=== PATIENT | female | born 1965 | race Caucasian/White ===

== ENCOUNTER 2018-12-28 20:40 | Emergency (ER) | payer OTHER ==
[2018-12-28 20:45] VITALS: BP 118/81
[2018-12-28] MEDS ORDERED: Sodium Chloride 0.9% 10 ML Syringe FLUSH PRN (20:45)
[2018-12-28] MEDS ORDERED: HYDROmorphone 1 MG/ML Syringe IVPUSH ONE ×2 (20:46→21:04)
--- NOTE | 2018-12-28 20:53 | EDM.PDOC ---
ED HPI GENERAL MEDICAL PROBLEM - General Chief Complaint: Lower Extremity Injury/Pain Stated Complaint: FELL HURT ANKLE Time Seen by Provider: 12/28/18 20:48 Source of Information: Reports: Patient, Old Records, RN History Limitations: Reports: No Limitations - History of Present Illness INITIAL COMMENTS - FREE TEXT/NARRATIVE: 53 yo female was coming down off some bleachers and hit a wet floor and slipped with injury to the L ankle. Has a visible deformity. Took ibuprofen before arrival. No other injuries. Ate dinner at 1830h tonight. Had water on the way to the hospital. 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 Left Ankle Pain Score (Numeric/FACES): 5 - Related Data Allergies Allergy/AdvReac Type Severity Reaction Status Date / Time lisinopril Allergy Joint Pain Verified 12/28/18 20:44 Home Meds: Home Meds NK [No Known Home Meds] 12/28/18 [History] Past Medical History Other HEENT History: wears glasses Other Respiratory History: "asthma like attack" upon exertion Social & Family History - Tobacco Use Smoking Status *Q: Never Smoker Second Hand Smoke Exposure: No - Caffeine Use Caffeine Use: Reports: Coffee, Soda - Recreational Drug Use Recreational Drug Use: No Review of Systems - Review of Systems Review Of Systems: See Below Constitutional: Reports: No Symptoms Musculoskeletal: Reports: Joint Pain (L ankle) Skin: Reports: No Symptoms Neurological: Reports: No Symptoms ED EXAM, GENERAL - Physical Exam Exam: See Below Exam Limited By: No Limitations General Appearance: Alert, WD/WN, No Apparent Distress Eye Exam: Bilateral Eye: Normal Inspection Ears: Normal External Exam, Hearing Grossly Normal Ear Exam: Bilateral Ear: Auricle Normal, Canal Normal Nose: Normal Inspection, No Blood Throat/Mouth: Normal Inspection, No Airway Compromise Head: Atraumatic, Normocephalic Neck: Normal Inspection Respiratory/Chest: No Respiratory Distress, Lungs Clear, Normal Breath Sounds, No Accessory Muscle Use Cardiovascular: Regular Rate, Rhythm, No Edema GI/Abdominal: Normal Bowel Sounds, Soft, Non-Tender, No Distention Extremities: Other (L ankle with visible deformity. ). No: Normal Inspection, Normal Range of Motion, Non-Tender, Limited Range of Motion Neurological: Alert, Oriented, CN II-XII Intact, Normal Cognition, No Motor/ Sensory Deficits Psychiatric: Normal Affect, Normal Mood Skin Exam: Warm, Dry, Intact, Normal Color, No Rash ED TRAUMA EXTREMITY PROCEDURES - Joint Reduction Site: Other (L ankle) Sedation: Conscious Sedation (anesthesia here to sedate) Technique: Other (inline traction) Number of Attempts: 1 Post-Reduction Imaging: Completely Reduced, Fracture Seen Joint Reduction Complications: No Progress/Comments: lateral stirrup and posterior splints applied with inline traction maintained. Course - Vital Signs Text/Narrative:: Called and left a message on the voice mail of Dr. Medina @ [phone] Posterior splint made with Orthoglass, 60 inches total of 4 inch width, secured with one 6 inch CHERRI and 4 x 4 inch CHERRI wraps. Last Recorded V/S: Last Vital Signs Temp 37.4 C 12/28/18 20:45 Pulse 75 12/28/18 20:45 Resp 16 12/28/18 20:45 BP 118/81 12/28/18 20:45 Pulse Ox 98 12/28/18 20:45 - Orders/Labs/Meds Orders: Active Orders 24 hr Category Date Time Status Ankle Min 3V Lt [CR] Stat Exams 12/28/18 20:46 Taken Ankle Min 3V Lt [CR] Stat Exams 12/28/18 21:27 Ordered Sodium Chloride 0.9% [Saline Flush] Med 12/28/18 20:45 Active 10 ml FLUSH ASDIRECTED PRN Saline Lock Insert [OM.PC] Routine Oth 12/28/18 20:45 Ordered Medication Orders Sodium Chloride (Saline Flush) 10 ml FLUSH ASDIRECTED PRN PRN Reason: Keep Vein Open Last Admin: 12/28/18 21:04 Dose: 10 ml Meds: Medications Generic Name Dose Route Start Last Admin Trade Name Freq PRN Reason Stop Dose Admin Sodium Chloride 10 ml 12/28/18 20:45 12/28/18 21:04 Saline Flush FLUSH 10 ml ASDIRECTED PRN Administration Keep Vein Open Discontinued Medications Generic Name Dose Route Start Last Admin Trade Name Freq PRN Reason Stop Dose Admin Hydromorphone HCl 1 mg 12/28/18 20:46 12/28/18 20:54 Dilaudid IVPUSH 12/28/18 20:47 1 mg ONETIME ONE Administration Hydromorphone HCl 1 mg 12/28/18 21:04 Dilaudid IVPUSH 12/28/18 21:05 ONETIME ONE Ondansetron HCl 4 mg 12/28/18 20:58 12/28/18 21:05 Zofran IVPUSH 12/28/18 20:59 4 mg ONETIME ONE Administration Propofol Confirm 12/28/18 21:31 Diprivan 20 Ml Administered 12/28/18 21:32 Dose 200 mg .ROUTE .STK-MED ONE - Radiology Interpretation Free Text/Narrative:: L ankle [id number]-[id number] fibula fx, dislocation L ankle post-reduction I-[id number] reduction Departure - Departure Time of Disposition: 22:00 Disposition: Home, Self-Care 01 Condition: Fair Clinical Impression: Fracture dislocation of left ankle Qualifiers: Encounter type: initial encounter Fracture type: closed Qualified Code(s): S82.892A - Other fracture of left lower leg, initial encounter for closed fracture - Discharge Information *PRESCRIPTION DRUG MONITORING PROGRAM REVIEWED*: No *COPY OF PRESCRIPTION DRUG MONITORING REPORT IN PATIENT BECKA: No Instructions: Tibial and Fibular Fractures Referrals: Nirmala Betancourt PA [Primary Care Provider] - Forms: ED Department Discharge Additional Instructions: Keep your L foot elevated above your heart as much as possible to reduce swelling and pain. Take ibuprofen 600 mg every 6 hrs with food and take acetaminophen 1000 mg every 6 hrs for pain relief. If this is not strong enough substitute [place] for the acetaminophen. Crutch walking and no weight bearing. Follow up with orthopedics next week. Use Zofran as directed for nausea control. - My Orders Last 24 Hours: My Active Orders 12/28/18 20:45 Sodium Chloride 0.9% [Saline Flush] 10 ml FLUSH ASDIRECTED PRN Saline Lock Insert [OM.PC] Routine 12/28/18 20:46 Ankle Min 3V Lt [CR] Stat 12/28/18 21:27 Ankle Min 3V Lt [CR] Stat - Assessment/Plan Last 24 Hours: My Active Orders 12/28/18 20:45 Sodium Chloride 0.9% [Saline Flush] 10 ml FLUSH ASDIRECTED PRN Saline Lock Insert [OM.PC] Routine 12/28/18 20:46 Ankle Min 3V Lt [CR] Stat 12/28/18 21:27 Ankle Min 3V Lt [CR] Stat
[2018-12-28] MEDS ORDERED: Ondansetron 4 MG/2 ML SDV IVPUSH ONE (20:58)
[2018-12-28] MEDS ORDERED: Propofol 200 MG/20 ML SDV ONE (21:31)
--- NOTE | 2018-12-28 21:39 | CRLCR ---
Indication: Injury and pain Technique: Left ankle 3 views. Comparison: None Findings: There is an oblique fracture of the lateral malleolus at the joint line with lateral displacement of 5 millimeters. There is widening of the medial aspect of the bony mortise consistent with a deltoid ligament injury. In addition there is a posterior malleolar fracture with distraction in the range of 14 millimeters with anterior dislocation of the tibial plafond relative to the talar dome. Impression: Essentially a trimalleolar injury with likely deltoid ligament tear as well as fractures of the posterior malleolus and lateral malleolus. Associated anterior dislocation of the tibial plafond relative to the talar dome. Dictated by Darrel Carmona MD @ Dec 28 2018 9:37PM Signed by Dr. Darrel Carmona @ Dec 28 2018 9:39PM
--- NOTE | 2018-12-28 21:52 | CRLCR ---
Indication: Post reduction Technique: Left ankle 3 views. Comparison: Left ankle 12/28/2018 at 20:58 Findings: Interval placement of a plaster cast which obscures some fine bony detail. The ankle joint has now been reduced and there is no dislocation. Posterior malleolar fracture redemonstrated with 4 millimeters distraction and lateral malleolar fracture demonstrated with 4 millimeter posterior displacement of the distal fracture fragment. Impression: Interval reduction of the left ankle as described above. Dictated by Darrel Carmona MD @ Dec 28 2018 9:49PM Signed by Dr. Darrel Carmona @ Dec 28 2018 9:51PM
--- NOTE | 2018-12-29 03:40 | ANES ---
DATE OF SERVICE: 12/28/2018 INDICATIONS: A 53-year-old lady in the emergency room with a fracture-dislocation of her left ankle. I was asked by Dr. Bear to provide sedation for a closed reduction. On interviewing the patient, she ate approximately 3 hours ago. She had a sandwich, chips and a glass of water. She has no known allergies. She does take Nexium for reflux. The procedure of sedation was explained to her in detail. All questions were answered. The consent was signed. DESCRIPTION OF PROCEDURE: She was hooked up to the ECG, pulse oximetry, blood pressure cuff and was given 4 L of oxygen via nasal cannula. Before I got there, she had been given 1 mg of Dilaudid IV. She was given by me 90 mg of propofol IV push and the ankle was easily reduced and a sugar-tong and posterior splint was applied by Dr. Bear. Within 15 minutes, she opened her eyes, responded to questions appropriately, and tolerated the procedure well. Alfonso Santiago CRNA /[id number]
== END 2018-12-28 22:32 | disposition home or self-care (01) ==
LOC: JP.ED 20:40
DX: S82.62XA Displaced fracture of lateral malleolus of left fibula, initial encounter for closed fracture (principal); Z88.8 Allergy status to other drugs, medicaments and biological substances; W01.198A Fall on same level from slipping, tripping and stumbling with subsequent striking against other object, initial encounter
CPT/HCPCS: 27788; 73610-LT; 96374; 96375; 99152; 99284-25; J1170; J2405; J2704

== ENCOUNTER 2019-01-03 09:41 | Day surgery (SDC) | payer OTHER ==
[2019-01-03] MEDS: Sodium Chloride 0.9% 1,000 ML IV SCH ×2 (11:33→16:37)
[2019-01-03] MEDS ORDERED: ceFAZolin 1 GM in Premix Bag 1 BAG IV ONE (12:15)
[2019-01-03] MEDS ORDERED: Rocuronium 50 MG/5 ML Vial ONE (12:30)
[2019-01-03] MEDS ORDERED: Succinylcholine 200 MG/10 ML MDV ONE (12:30)
[2019-01-03] MEDS ORDERED: fentaNYL 250 MCG/5 ML SDV ONE (12:30)
[2019-01-03] MEDS ORDERED: Ondansetron 4 MG/2 ML SDV ONE (12:30)
[2019-01-03] MEDS ORDERED: Dexamethasone 4 MG/ML SDV ONE (12:30)
[2019-01-03] MEDS ORDERED: Propofol 200 MG/20 ML SDV ONE (12:30)
[2019-01-03] MEDS ORDERED: fentaNYL 100 MCG/2 ML SDV ONE (12:30)
[2019-01-03] MEDS ORDERED: Bupivacaine 0.5% 50 ML MDV INJECT ONE (13:43)
[2019-01-03] MEDS ORDERED: Acetaminophen/oxyCODONE 325-5 MG Tab PO ONE ×2 (15:17→15:26)
[2019-01-03 16:58] VITALS: BP 145/76
--- NOTE | 2019-01-05 14:51 | PCM.OPNOTE ---
- General Post-Op/Procedure Note Date of Surgery/Procedure: 01/03/19 Operative Procedure(s): Open Reduction and internal fixation left fibula, repair deltoid ligament, fixation of syndesmosis with Tight-rope device Findings: distal fibula fracture, deltoid ligament rupture, syndesmosis disruption left ankle Pre Op Diagnosis: Dislocation left ankle, left distal fibula fracture Post-Op Diagnosis: Dislocation left ankle, distal fibula fracture, deltoid ligament rupture, syndesmosis rupture Anesthesia Technique: General ET Tube Primary Surgeon: Loyd BARCENAS in mLs: 20 Complications: None Condition: Good Free Text/Narrative:: Indications: Payal is a 53-year-old female who sustained a dislocation of her left ankle with a fracture of the distal fibula. She now presents for open reduction and internal fixation of unstable ankle with possible repair of the deltoid ligament.Risks, benefits and potential complications of the procedure w discussed. She wishes to proceed. Procedure: After adequate anesthesia was obtained patient was placed supine with a bump under the left hip.The left foot and leg was prepped and draped in a sterile fashion. Leg was exsanguinated and tourniquet inflated to 300 mg of mercury pressure. Longitudinal incision was made over the distalfibula This was carried down through the subcutaneous tissue directly to the fibula. Fracture was identified. The fracture was reduced and held with a bone-holding clamp. A contoured fibular plate was selected and secured distally with locking screws. This was then secured proximally with 3.5 cortical screws. Fixation was evaluated with flouroscopy. The medial space was wide and decision was made to proceed with repair of the deltoid ligament. Curvilinear incision was made over the medial aspect of the ankle. This was carried down through the subcutaneous tissues.Deltoid tear was identified. A portion of the tear was displaced into the joint. This was removed. Ronguer was used to lightly decorticate the anterior aspect of the distal medial malleolus. 2 Mitek GII anchors were placed in the medial maleollus. Both limbs of the sutures were brought through the deltoid ligament.The foot was then held in a dorsiflexed position and reduced medially. Sutures were then tied and cut. Further evaluation was done with fluoroscopy. Lateral stress revealed persistent widening with displacement of the syndesmosis. Decision was made to proceed with fixation of the syndesmosis using a Tight-Rope device.Guidepin was placed through a screw hole in the fibular plate across the fibula and through the distal tibia. Cannulated drill was then placed over the pin. A needle for the tight rope device was placed through the screw hole and through the tibial tunnel. Sutures were used to pull the toggle to the distal tibia.Tension was then applied laterally. Fluoroscopy revealed that the implant had not fully deployed on the cortex and had been pulled back laterally. Adequate fixation could not be obtained. Sutures were cut and the lateral button was removed along with th sutures.Attempt was made to place the pin back through the same tunnel but the implant was blocking passage. A separate drill hole was then made distal to this again through the plate. Process was repeated. Confirmation of adequate position of the implant was done with fluoroscopy. Sutures were then tightened down The foot was again placed in neutral position and the implant tightened reducing the fibula. Sutures were tied and cut. All of the incisions were then irrigated with saline. Lateral incision was closed with 0 Vicryl in the deep layer over the fibula, 2-0 Vicryl and a subcuticular 3-0 running Monocryl. Steri-Strips were applied. A well-padded AO plaster splint was then applied with the foot in neutral position. Taken from the operating room in a stable condition there were no complications.
== END 2019-01-03 17:18 ==
LOC: JP.ORTCL 09:41 → JP.SDS 09:41 → EDSTATUS 11:30 → JP.SDS 17:18
PROVIDERS: ATTEND Specialist
DX: S93.05XA Dislocation of left ankle joint, initial encounter (principal); S82.402A Unspecified fracture of shaft of left fibula, initial encounter for closed fracture; S93.439A Sprain of tibiofibular ligament of unspecified ankle, initial encounter; K76.0 Fatty (change of) liver, not elsewhere classified; K21.9 Gastro-esophageal reflux disease without esophagitis; Z79.899 Other long term (current) drug therapy; Z88.8 Allergy status to other drugs, medicaments and biological substances; W01.0XXA Fall on same level from slipping, tripping and stumbling without subsequent striking against object, initial encounter
CPT/HCPCS: 27695; 27792; 27829; 36415; 76000; 80053; 85027; A9270; C1713; C1776; J0690; J3490; J7030; J0330; J1100; J2405; J2704; J3010

== ENCOUNTER 2019-09-02 06:59 | Day surgery (SDC) | payer OTHER ==
[2019-09-02] MEDS ORDERED: Lactated Ringers 1,000 ML IV SCH (07:30)
[2019-09-02] MEDS ORDERED: fentaNYL 100 MCG/2 ML SDV ONE (08:13)
[2019-09-02] MEDS ORDERED: Midazolam 1 MG/ML 2 ML SDV ONE (08:14)
[2019-09-02] MEDS ORDERED: Propofol 200 MG/20 ML SDV ONE (08:14)
[2019-09-02 10:07] VITALS: BP 116/72; PULSE 59
[2019-09-02] MEDS: Ampicillin 2 GM in Sodium Chloride 0.9% 100 ML IV ONE ×2 (11:18→11:19)
--- NOTE | 2019-09-02 13:48 | OR ---
DATE OF PROCEDURE: 09/02/2019 SURGEON: Riki Sanchez MD PREOPERATIVE DIAGNOSIS: Colon cancer screening. POSTOPERATIVE DIAGNOSIS: Diverticulosis. PROCEDURE: Colonoscopy to the cecum. ANESTHESIA: IV anesthesia with monitored anesthesia care. INDICATIONS: This 54-year-old white female is referred for a colonoscopy for colon cancer screening. She has never had a colonoscopic exam. I counseled her for the procedure, including risks and alternatives, and she gave her informed consent to proceed. DESCRIPTION OF PROCEDURE: The patient was placed in the left lateral decubitus position. IV anesthesia was administered by the Anesthesia Service. Time-out was held. A rectal exam was performed, which was unremarkable. The flexible video Olympus colonoscope was introduced through her anus, up her rectum, out her colon all the way to the cecum. Once the cecum was reached, the scope was slowly withdrawn, examining the mucosa throughout. No mucosal abnormalities were noted, except for a few scattered left-sided diverticula. There was no bleeding or inflammation associated with them. The scope was retroflexed in the rectum with the distal rectum appearing unremarkable. The scope was straightened and removed. She tolerated the procedure well. Riki Sanchez MD /[id number]
== END 2019-09-02 10:11 | disposition home or self-care (01) ==
LOC: JP.SDS 06:59
PROVIDERS: ATTEND Surgery
DX: Z12.11 Encounter for screening for malignant neoplasm of colon (principal); K57.30 Diverticulosis of large intestine without perforation or abscess without bleeding; I10 Essential (primary) hypertension; K21.9 Gastro-esophageal reflux disease without esophagitis; Z88.8 Allergy status to other drugs, medicaments and biological substances; Z79.899 Other long term (current) drug therapy
CPT/HCPCS: J0290; J2250; J2704; J3010; J7030; J7120

== ENCOUNTER 2023-05-19 12:42 | Emergency (ER) | payer OTHER ==
[2023-05-19 16:15] LABS: HEMATOCRIT 43.4 % (34.3-46.0); HEMOGLOBIN 14.8 g/dL (11.2-15.5); MEAN CORPUSCULAR HEMOGLOBIN 29.1 pg (31.6-35.5); MEAN CORPUSCULAR HGB CONC 34.1 g/dL (31.6-35.5); MEAN CORPUSCULAR VOLUME 85.3 fL (81.4-99.0); RED BLOOD CELL COUNT 5.09 M/uL (3.77-5.24); WHITE BLOOD CELL COUNT,WBC 7.7 K/uL (3.2-11.0)
[2023-05-19 16:41] LABS: CALCIUM 8.9 mg/dL (8.5-10.1); CREATININE 0.9 mg/dL (0.6-1.0); EST CRCL DRUG DOSING (CG) 68.68 mL/min; POTASSIUM,K 4.3 mmol/L (3.6-5.2); TROPONIN I HIGH SENSITIVITY 10.3 pg/mL (<=60.3)
[2023-05-19 16:42] LABS: ANION GAP 11.3 mmol/L (5.0-14.0)
[2023-05-19 17:19] VITALS: BP 172/84; PULSE 65
== END 2023-05-19 17:51 | disposition home or self-care (01) ==
LOC: JP.ED 12:42
DX: I10 Essential (primary) hypertension (principal); Z88.8 Allergy status to other drugs, medicaments and biological substances; Z86.16 Personal history of COVID-19; Z79.899 Other long term (current) drug therapy
CPT/HCPCS: 36415; 70450; 70450-26; 80048; 84484; 85027; 93005; 99284